=== PATIENT | female | born 1985 | race African-American/Black ===

== ENCOUNTER 2020-09-16 13:51 | Outpatient (CLI) | payer BC, SELFPAY ==
--- NOTE | ~2020-09-16 | US_ITS ---
EXAMINATION: US OB transvaginal EXAM DATE: 09/16/2020 14:27 INDICATION: , bleeding. 1st trimester. TECHNIQUE: Pelvic obstetrical transvaginal sonogram was performed by a technologist. There are [facility] grayscale and Doppler images available for interpretation. There are no earlier studies of this gestation for comparison. FINDINGS: The uterus measures 8.3 x 4.5 x 5.4 cm. There is an intrauterine gestation sac which has so mewhat flattened shape, and also small subchorionic hemorrhage measuring 3 x 6 x 11 mm in size. There is a yolk sac identified and also probable pole, however there is no cardiac activity identifi ed. Suspected crown-rump length of 5 mm corresponds to estimated gestational age 6 weeks 2 days. Typi mike cardiac activity is confirmed within pole this size, if there is viability. The ovaries a re morphologically normal. IMPRESSION: Flattened gestation sac with small subchorionic hemorrhage, small pole without card iac activity identified. Poor prognostic indicators for this gestation. Consider 1-2 week follow-up e son. Reviewed, dictated and finalized at location A. TY JUVEN[employer] OFFICER IMPRESSION: Flattened gestation sac with small subchorionic hemorrhage, small f etal pole without cardiac activity identified. Poor prognostic indicators for t his gestation. Consider 1-2 week follow-up exam.
== END 2020-09-16 13:52 ==
LOC: MICIMG 13:53
PROVIDERS: PCP Nurse Practitioner Family; Visit Provider Obstetrics & Gynecology
DX: O26.851 Spotting complicating pregnancy, first trimester (principal); Z3A.00 Weeks of gestation of pregnancy not specified
CPT/HCPCS: 76817

== ENCOUNTER 2020-09-22 14:27 | Outpatient (RCR) | payer BC, SELFPAY | END 2020-12-19 23:59 | disposition home or self-care (01) | LOC: ANHLAB 14:27 | PROVIDERS: PCP Nurse Practitioner Family; Visit Provider Obstetrics & Gynecology | DX: O26.851 Spotting complicating pregnancy, first trimester (principal); O28.3 Abnormal ultrasonic finding on antenatal screening of mother; Z3A.00 Weeks of gestation of pregnancy not specified | CPT/HCPCS: 36415; 84702; 86850; 86900; 86901 ==

== ENCOUNTER 2021-05-13 10:36 | Outpatient (CLI) | payer BC, SELFPAY ==
--- NOTE | ~2021-05-13 | US_ITS ---
EXAMINATION: US OB transvaginal EXAM DATE: 05/13/2021 11:17 INDICATION: , uncertain dates. Transvaginal. TECHNIQUE: Pelvic obstetrical transvaginal sonogram was hiatal performed by a technologist. There a re multiple grayscale and Doppler images available for interpretation. There are no earlier studies of this gestation for comparison. FINDINGS: Uterus measures 7.5 x 4.5 x 5.8 cm. There is intrauterine gestation sac. pole with heart rate confirmed at 154 beats per minute. The 1.0 cm crown-rump length corresponds to estimated gestational age by ultrasound of 7 weeks 1 day, estimated date of confinement 12/29/2021. Yolk sac is identified. There is no sonographic evidence of subchorionic hemorrhage. Right ovary measures 3. 3 x 1.5 x 1.9 cm, the left measuring 4.0 x 2.3 x 2.2 cm. They are morphologically normal with color f low confirmed. IMPRESSION: Early live intrauterine gestation, age by ultrasound 7 weeks 1 day. Reviewed, dictated and finalized at location B. IMPRESSION: Early live intrauterine gestation, age by ultrasound 7 weeks 1 day .
== END 2021-05-13 10:37 ==
PROVIDERS: Visit Provider Obstetrics & Gynecology Gynecology
DX: Z34.91 Encounter for supervision of normal pregnancy, unspecified, first trimester (principal); Z3A.01 Less than 8 weeks gestation of pregnancy
CPT/HCPCS: 76817

== ENCOUNTER 2021-05-17 10:13 | Emergency (ER) | payer BC, SELFPAY ==
[2021-05-17 10:20] VITALS: BP 125/93; PULSE 100; RESP 14; TEMP 37.2; O2SAT 99
[2021-05-17 10:44] LABS: Hematocrit 40.5 % (37.0-47.0); Hemoglobin 13.9 g/dL (12.0-15.0); Mean Corpuscular HGB Conc 34.3 g/dl (32-36); Mean Corpuscular Volume 81.7 fl (80-100); Mean Platelet Volume 8.4 fl (7.4-10.4); Platelet Count Result 199 k/mm3 (150-375); Red Blood Count 4.96 M/mm3 (4.2-5.4); Red Cell Distribution Width 11.9 % (11.5-14.5); White Blood Count 5.5 K/mm3 (4.5-10.0)
--- NOTE | 2021-05-17 10:49 | ED.GENADULT ---
HPI - General Adult General Chief complaint: Nausea/Vomiting/Diarrhea Stated complaint: dehydration Time Seen by Provider: 05/17/21 10:16 Source: patient, family and RN notes reviewed Mode of arrival: ambulatory Limitations: no limitations History of Present Illness HPI narrative: Patient is a 36-year-old female who presents to emergency department for evaluation of dehydration patient was at her sharepoint manager's office today noting that she is 8 weeks per ultrasound has had some nausea and vomiting in the had a urinalysis in the sharepoint manager's office showing 4+ ketones on urinalysis patient denies any abdominal pain or other complaints at this time or concerns patient is resting comfortably patient is G5, P2 patient denies any vaginal bleeding abdominal pain Related Data Allergies Allergy/AdvReac Type Severity Reaction Status Date / Time No Known Allergies Allergy Verified 05/17/21 10:20 Review of Systems Review of Systems: All systems reviewed & are unremarkable except as noted in HPI and below PMFSH Social History Social History (Updated 05/17/21 @ 10:52 by Jose Jaquez PA-C) Smoking status: Current every day smoker Exam Narrative: Exam Narrative: GENERAL: Well-appearing, well-nourished, and in no acute distress. HEAD: Normocephalic, atraumatic. EYES: PERRLA and EOMI. ENT: Nares clear, no rhinorrhea or epistaxis. Mucous membranes moist. CHEST: Clear to auscultation. No respiratory distress. No wheezes rales or rhonchi HEART: Regular rate and rhythm. No murmur heard. Normal peripheral pulses. ABDOMEN: Soft, nontender, nondistended EXTREMITIES: Normal range of motion. No edema. SKIN: Warm, dry, no rash. NEURO: No focal deficits. Alert and oriented x3. PSYCH: Normal mood and affect. Course Course Emergency Course: Patient evaluated the emergency department was hydrated will be discharged home with medications and outpatient follow-up with primary care and sharepoint manager provided with reasons to return Vital Signs Vital signs: Vital Signs Temperature 99.0 F 05/17/21 10:20 Pulse Rate 100 05/17/21 10:20 Respiratory Rate 14 05/17/21 10:20 Blood Pressure 125/93 H 05/17/21 10:20 Pulse Oximetry 99 05/17/21 10:20 Temperature 99.0 F 05/17/21 10:20 Pulse Rate 110 H 05/17/21 12:08 Respiratory Rate 14 05/17/21 10:20 Blood Pressure 156/91 H 05/17/21 12:08 Pulse Oximetry 99 05/17/21 10:20 Medical Decision Making MDM Narrative Medical decision making narrative: Patient hydrated the emergency department no other high risk changes or concerning findings will be discharged with outpatient follow-up with sharepoint manager Vital Signs Vital Signs: Vital Signs Temperature 99.0 F 05/17/21 10:20 Pulse Rate 100 05/17/21 10:20 Respiratory Rate 14 05/17/21 10:20 Blood Pressure 125/93 H 05/17/21 10:20 Pulse Oximetry 99 05/17/21 10:20 Temperature 99.0 F 05/17/21 10:20 Pulse Rate 110 H 05/17/21 12:08 Respiratory Rate 14 05/17/21 10:20 Blood Pressure 156/91 H 05/17/21 12:08 Pulse Oximetry 99 05/17/21 10:20 Lab Data Result diagrams: 05/17/21 10:28 05/17/21 10:28 Labs: Lab Results 05/17/21 05/17/21 05/17/21 Range/Units 10:28 10:28 10:41 WBC 5.5 (4.5-10.0) K/mm3 RBC 4.96 (4.2-5.4) M/mm3 Hgb 13.9 (12.0-15.0) g/dL Hct 40.5 (37.0-47.0) % MCV 81.7 (80-100) fl MCH 28.0 (26-34) pg MCHC 34.3 (32-36) g/dl RDW 11.9 (11.5-14.5) % Plt Count 199 (150-375) k/mm3 MPV 8.4 (7.4-10.4) fl Immature Gran % (Auto) Not Reportable Neut % (Auto) Not Reportable Lymph % (Auto) Not Reportable [place] % (Auto) Not Reportable Eos % (Auto) Not Reportable Baso % (Auto) Not Reportable Lymph # (Auto) Not Reportable [place] # (Auto) Not Reportable Eos # (Auto) Not Reportable Baso # (Auto) Not Reportable Abs Immat Gran (auto) Not Reportable
[2021-05-17 10:53] LABS: Alanine Aminotransferase 23 U/L (4-35); Albumin Level 4.5 g/dL (3.5-5.1); Alkaline Phosphatase 80 U/L (38-126); Anion Gap 12 mmol/L (8-16); Aspartate Amino Transferase 46 U/L (14-36); Bilirubin,Total 0.3 mg/dL (0.2-1.3); Blood Urea Nitrogen 5 mg/dL (7-17); Calcium 9.7 mg/dL (8.4-10.2); Carbon Dioxide 24 mmol/L (22-30); Chloride 90 mmol/L (98-107); Estimated Glomerular Filt Rate > 60; Glucose 98 mg/dL (65-105); Lipase 41 U/L (23-300); Potassium 3.3 mmol/L (3.4-5.0); Sodium 126 mmol/L (137-145)
[2021-05-17 11:00] LABS: Add Urine Microscopic? YES; Appearance Urine Cloudy (Clear); Bacteria Urine Trace /hpf; Bilirubin Urine Negative (Negative); Blood Urine Negative (Negative); Color Urine Yellow (Yellow); Glucose Urine UA Negative (Negative); Ketones Urine 1+ mg/dL (Negative); Leukocyte Esterase Ur Negative LEU/UL (Negative); Mucus Urine Rare /lpf; Nitrate Urine Negative (Negative); Protein Urine Negative (Negative); Specific Grav Ur 1.015 (1.001-1.035); Squamous Epithelial Cell Urine Many /hpf (Few); Urobilinogen Urine Negative mg/dL (<2.0); WBC Urine 0-3 /hpf
[2021-05-17] MEDS: DEXTROSE 5%/LACTATED RINGERS 1,000 ML 999 ML IV CONT (11:18)
[2021-05-17] MEDS: FAMOTIDINE 20 MG/2 ML VIAL IV PUSH (11:18)
[2021-05-17 11:21] LABS: Band Neutrophils Percent 11 % (0-6); Lymphocytes Absolute Manual 2.42 K/mm3 (1.1-4.5); Lymphocytes Percent Manual 44 % (18-44); Monocytes Absolute Manual 0.44 K/mm3 (0.1-0.90); Monocytes Percent Manual 8 % (3-9); Neutrophils Absolute Manual 2.64 K/mm3 (1.7-7.2); Neutrophils Percent Manual 37 % (46-73); Total Cells Counted 100
[2021-05-17 11:22] LABS: Atypical Lymphocytes Present; Platelet Estimate Adequate (Adequate)
[2021-05-17 12:05] VITALS: BP 136/82; PULSE 97
[2021-05-17 12:07] VITALS: BP 141/86; PULSE 108
[2021-05-17 12:08] VITALS: BP 156/91; PULSE 110
[2021-05-17] MEDS: PROMETHAZINE HCL 25 MG/ML AMPUL 12.5 MG IV PUSH (12:19)
[2021-05-17 13:14] VITALS: BP 117/84; PULSE 97; RESP 12; O2SAT 100
== END 2021-05-17 13:16 | disposition home or self-care (01) ==
PROVIDERS: Emergency Medicine Emergency Medical Services; Emergency Provider Emergency Medicine
DX: O21.0 Mild hyperemesis gravidarum (principal); Z3A.08 8 weeks gestation of pregnancy; O99.331 Smoking (tobacco) complicating pregnancy, first trimester; F17.210 Nicotine dependence, cigarettes, uncomplicated
CPT/HCPCS: 36415; 80053; 81001; 81025; 83690; 85025; 96361; 96374; 96375; 99284; J2550; J7121

== ENCOUNTER 2021-10-26 15:10 | Observation (INO) | payer BC, SELFPAY ==
[2021-10-26] VITALS (29 sets, daily range): BP systolic 101–120; BP diastolic 62–76; PULSE 87–111; RESP 16; TEMP 37; O2SAT 99–100; BMI 21.6
--- NOTE | 2021-10-26 16:00 | OBADM ---
This patient, Megan Nelson, admitted to the OB room 112 for observation. Patient/family oriented to hospital policies and general routines including ID bracelet, bed and alarms, visiting hours, pain management, procedures, bathroom and other care routines, personal items, smoking policy, room service/diet, and visiting hours. Patient/Family are encouraged to report perceived risks to care and to ask questions if they do not understand what they are told or what they should do.
--- NOTE | 2021-10-26 16:54 | PC.NURSE ---
Dr. Green returned page and informed of reactive NST, no FHR decels, 1 cxn/hr. To continue monitoring until 1900 and may discharge to home if no FHR decels. Pt to have NST and BPP in am here if she is able to go home.
--- NOTE | 2021-10-26 19:00 | PC.NURSE ---
Pt left on monitor longer due to the intermittent FHR signal I've had this evening.
--- NOTE | 2021-11-04 08:05 | PM.OBTRLD ---
OB - Triage/Final Diagnosis Visit Information Comments/Additional reasons for admission: I have assessed the risk for this patient, Megan Nelson, and determined that she would benefit from observation care. Final Diagnosis (1) NST (non-stress test) nonreactive: Code(s): O28.8 - Other abnormal findings on screening of mother Status: Acute
== END 2021-10-26 19:51 | disposition home or self-care (01) ==
PROVIDERS: Admitting Provider Obstetrics & Gynecology; PCP Nurse Practitioner Family; Visit Provider Obstetrics & Gynecology
DX: O28.8 Other abnormal findings on antenatal screening of mother (principal); Z3A.30 30 weeks gestation of pregnancy
CPT/HCPCS: G0378; G0379

== ENCOUNTER 2021-10-27 09:56 | Outpatient (RCR) | payer BC, SELFPAY ==
--- NOTE | ~2021-10-27 | US_ITS ---
EXAMINATION: US OB BPP wo non-stress DATE: 10/27/2021 11:25 INTENSIVE CARE UNIT NURSE INDICATION: Small for gestational age TECHNIQUE: Real-time transabdominal obstetric ultrasound. FINDINGS: No prior studies for comparison. There is a single living fetus in vertex presentation. The placenta is posterior without placenta pr evia. cardiac activity and movement is noted with a heart rate of 136 beats per minute. Biophysical profile: breathin of 2 movement: 2 of 2 tone: 2 of 2 Amniotic flud pocket: 2 of 2 Total score: 8 of 8 IMPRESSION: 1. Single living intrauterine in vertex presentation. 2: Total biophysical profile score of 8/8. Reviewed, dictated and finalized at location A. NSIVE CARE UNIT NURSE
[2021-10-27 11:25] VITALS: BP 107/78; PULSE 110
== END 2021-12-09 20:46 | disposition home or self-care (01) ==
LOC: ANHOBOP 09:56
PROVIDERS: PCP Nurse Practitioner Family; Visit Provider Obstetrics & Gynecology
DX: O36.5930 Maternal care for other known or suspected poor fetal growth, third trimester, not applicable or unspecified (principal); Z3A.30 30 weeks gestation of pregnancy
CPT/HCPCS: 59025; 76819

== ENCOUNTER 2021-11-01 03:38 | Observation (INO) | payer BC, SELFPAY ==
[2021-11-01 03:38] VITALS: RESP 12
[2021-11-01 03:56] VITALS: BP 118/73; PULSE 88; RESP 16; TEMP 36.8
[2021-11-01 03:57] VITALS: PULSE 90; O2SAT 100
[2021-11-01 04:02] VITALS: PULSE 78; O2SAT 100
[2021-11-01 05:02] LABS: Add Urine Microscopic? NO; Appearance Urine Clear (Clear); Bilirubin Urine Negative (Negative); Blood Urine Negative (Negative); Color Urine Straw (Yellow); Glucose Urine UA Negative (Negative); Ketones Urine Negative (Negative); Leukocyte Esterase Ur Negative LEU/UL (NEGATIVE); Nitrate Urine Negative (Negative); Protein Urine Negative (Negative); Urobilinogen Urine Negative mg/dL (<2.0)
[2021-11-01 05:12] VITALS: BMI 22.0
[2021-11-01 05:45] LABS: Specific Grav Ur 1.003 (1.001-1.035)
--- NOTE | 2021-11-04 08:04 | P.PNOB_ITS ---
OB - Triage/Final Diagnosis Visit Information Comments/Additional reasons for admission: I have assessed the risk for this patient, Megan Nelson, and determined that she would benefit from observation care. Evaluation Laboratory results: Laboratory Tests 11/01/21 04:40 Urine Color Straw Urine Appearance Clear Urine pH 7.0 Ur Specific [place] 1.003 Urine Protein Negative Urine Glucose (UA) Negative Urine Ketones Negative Ur Blood (Man) Negative Urine Nitrate Negative Urine Bilirubin Negative Urine Urobilinogen Negative Ur Leukocyte Esterase Negative Final Diagnosis (1) False labor: Code(s): O47.9 - False labor, unspecified Status: Acute
== END 2021-11-01 07:12 | disposition home or self-care (01) ==
PROVIDERS: Admitting Provider Obstetrics & Gynecology; PCP Nurse Practitioner Family; Visit Provider Obstetrics & Gynecology
DX: O47.9 False labor, unspecified (principal); Z3A.00 Weeks of gestation of pregnancy not specified
CPT/HCPCS: 81003; G0378; G0379

== ENCOUNTER 2021-11-14 17:45 | Inpatient (IN) | payer BC, SELFPAY ==
[2021-11-14] VITALS (36 sets, daily range): BP systolic 128–156; BP diastolic 77–87; PULSE 64–99; RESP 16–20; TEMP 36.5–37.1; O2SAT 100
[2021-11-14] MEDS: LACTATED RINGERS 1,000 ML 125 ML IV CONT ×2 (18:00→19:04)
[2021-11-14] MEDS: ceFAZolin 2 GM/D5W 50 ML 2 GM/50 ML BAG IVPB (18:13)
[2021-11-14 18:23] LABS: Basophils Percent Auto 0.3 % (0.2-1.2); Eosinophils Absolute Auto 0.1 K/mm3 (0-0.3); Hematocrit 33.2 % (37.0-47.0); Hemoglobin 10.9 g/dL (12.0-15.0); Immature Granulocyte Absolute 0.04 K/mm3 (0.00-0.031); Immature Granulocyte Percent A 0.6 % (0-0.5); Lymphocytes Percent Auto 45.2 % (18.3-44.2); Mean Corpuscular HGB Conc 32.8 g/dl (32-36); Mean Corpuscular Hemoglobin 28.6 pg (26-34); Mean Corpuscular Volume 87.1 fl (80-100); Monocytes Absolute Auto 0.7 K/mm3 (0.1-0.6); Monocytes Percent Auto 11.4 % (2.6-8.5); Neutrophils Absolute Auto 2.6 K/mm3 (1.3-6.7); Neutrophils Percent Auto 40.5 % (45.5-73.1); Platelet Count Result 320 k/mm3 (150-375); Red Blood Count 3.81 M/mm3 (4.2-5.4); Red Cell Distribution Width 13.2 % (11.5-14.5); White Blood Count 6.4 K/mm3 (4.5-10.0)
[2021-11-14 18:33] LABS: INR 0.9; Prothrombin Time 12.3 Seconds (11.1-14.7)
[2021-11-14 18:34] LABS: Partial Thromboplastin Time 30.9 SECONDS (22.3-36.8)
[2021-11-14 18:40] LABS: Fibrinogen 252 mg/dl (215-510)
--- NOTE | 2021-11-14 19:13 | WPDANESEPP ---
Anes - Eval Pre Procedure Procedure: Operation Date: 11/14/21 18:30 Proposed Procedures p Section - Latoya Isidro MD Date/Time: 11/14/21 19:13 Pre Op Diagnosis: Bleeding Patient Data Age: 36 Gender: F Height: Weight: 49.9 kg Last Vital Signs Pulse 91 11/14/21 19:06 BP 128/87 11/14/21 19:06 Pulse Ox 100 11/14/21 19:10 Allergies Allergy/AdvReac Type Severity Reaction Status Date / Time No Known Allergies Allergy Verified 05/17/21 10:20 Home Medications Medication Instructions Recorded Confirmed Type PNV cmb#95-ferrous fumarate-FA 1 tablet PO DAILY 10/26/21 10/27/21 History [] aspirin 81 mg PO DAILY 10/26/21 10/27/21 History progesterone micronized 100 mg VAGINAL HS 10/26/21 10/27/21 History Laboratory Tests 11/14/21 11/14/21 11/14/21 18:18 18:18 18:18 WBC 6.4 K/mm3 K/mm3 (4.5-10.0) RBC 3.81 M/mm3 L M/mm3 (4.2-5.4) Hgb 10.9 g/dL L D g/dL (12.0-15.0) Hct 33.2 % L % (37.0-47.0) MCV 87.1 fl fl (80-100) MCH 28.6 pg pg (26-34) MCHC 32.8 g/dl g/dl (32-36) RDW 13.2 % % (11.5-14.5) Plt Count 320 k/mm3 D k/mm3 (150-375) MPV 9.0 fl fl (7.4-10.4) Immature Gran % (Auto) 0.6 % H % (0-0.5) Neut % (Auto) 40.5 % L % (45.5-73.1) Lymph % (Auto) 45.2 % H % (18.3-44.2) [place] % (Auto) 11.4 % H % (2.6-8.5) Eos % (Auto) 2.0 % % (0-4.4) Baso % (Auto) 0.3 % % (0.2-1.2) Lymph # (Auto) 2.90 K/mm3 K/mm3 (0.9-3.2) [place] # (Auto) 0.7 K/mm3 H K/mm3 (0.1-0.6) Eos # (Auto) 0.1 K/mm3 K/mm3 (0-0.3) Baso # (Auto) 0.0 K/mm3 K/mm3 (0.0-0.1) Abs Immat Gran (auto) 0.04 K/mm3 H K/mm3 (0.00-0.031) Absolute Neuts (auto) 2.6 K/mm3 K/mm3 (1.3-6.7) Absolute Nucleated RBC 0.0 K/mm3 K/mm3 (0.0-0.012) Nucleated RBC % 0.0 % % (0.0-0.2) PT INR APTT Fibrinogen RPR Pending Blood Type O Positive Antibody Screen Negative 11/14/21 18:18 WBC RBC Hgb Hct MCV MCH MCHC RDW Plt Count MPV Immature Gran % (Auto) Neut % (Auto) Lymph % (Auto) [place] % (Auto) Eos % (Auto) Baso % (Auto) Lymph # (Auto) [place] # (Auto) Eos # (Auto) Baso # (Auto) Abs Immat Gran (auto) Absolute Neuts (auto) Absolute Nucleated RBC Nucleated RBC % PT 12.3 Seconds Seconds (11.1-14.7) INR 0.9 APTT 30.9 SECONDS SECONDS (22.3-36.8) Fibrinogen 252 mg/dl mg/dl (215-510) RPR Blood Type Antibody Screen Patient hx anesthesia problems: none Family hx anesthesia problems: none Results Review: All pre-operative results and documents have been reviewed as part of the pre-operative evaluation. [facility] Past Medical History Medical History (Updated 11/04/21 @ 08:06 by Erasmo Green MD) False labor NST (non-stress test) nonreactive Social History Social History (Updated 05/17/21 @ 10:52 by Jose Jaquez PA-C) Smoking status: Current every day smoker Exam Day of Procedure 11/14/21 19:13 Patient weight: normal Heart: regular rate and rhythm Lungs: clear to auscultation Airway: Mallampati scale class II Neurological: alert and oriented
[2021-11-14 19:32] LABS: Amphetamine Screen Urine Negative (Negative); Barbiturate Screen Urine Negative (Negative); Benzodiazepines Screen Urine Negative (Negative); Cannabinoid Screen Urine Negative (Negative); Cocaine Screen Urine Negative (Negative); Methadone Screen Urine Negative (Negative); Opiate Screen Urine Negative (Negative); Phencyclidine Screen Urine Negative (Negative)
[2021-11-14] MEDS: MORPHINE SULFATE INJ (*CRX) 10 MG/ML AMP 3 MG IV PUSH ×2 (19:40→20:09)
--- NOTE | 2021-11-14 21:11 | OBPPTRN ---
Patient transferred to post room #290 via bed. Support person present. Oriented to unit, room, information board, rooming in, admission packet and security measures. Patient verbalizes understanding.
[2021-11-14] MEDS: OXYTOCIN 30 UNITS/NS 500 ML 30 UNITS/500 ML BAG 125 UNITS IV CONT (21:39)
[2021-11-14] MEDS: FENTANYL 600MCG/NS30MLPCA(*CRX 600 MCG/30 ML PCA.VIAL IV CONT (22:44)
[2021-11-15] VITALS (10 sets, daily range): BP systolic 115–141; BP diastolic 66–91; PULSE 75–89; RESP 16–18; TEMP 36.8–37.2; O2SAT 100
[2021-11-15] MEDS: DEXTROSE 5%/0.45% SOD CHL 1,000 ML 125 ML IV CONT (01:50)
[2021-11-15 05:50] LABS: Basophils Percent Auto 0.1 % (0.2-1.2); Hematocrit 25.9 % (37.0-47.0); Hemoglobin 8.5 g/dL (12.0-15.0); Immature Granulocyte Absolute 0.15 K/mm3 (0.00-0.031); Lymphocytes Absolute Auto 2.29 K/mm3 (0.9-3.2); Lymphocytes Percent Auto 14.6 % (18.3-44.2); Mean Corpuscular HGB Conc 32.8 g/dl (32-36); Mean Corpuscular Hemoglobin 28.9 pg (26-34); Mean Corpuscular Volume 88.1 fl (80-100); Mean Platelet Volume 9.2 fl (7.4-10.4); Monocytes Percent Auto 6.2 % (2.6-8.5); Neutrophils Absolute Auto 12.2 K/mm3 (1.3-6.7); Neutrophils Percent Auto 78.1 % (45.5-73.1); Platelet Count Result 286 k/mm3 (150-375); Red Blood Count 2.94 M/mm3 (4.2-5.4); White Blood Count 15.7 K/mm3 (4.5-10.0)
[2021-11-15 05:51] LABS: Glucose Point of Care 127 mg/dl (65-105)
--- NOTE | 2021-11-15 07:28 | PM.OBPNVD ---
OB - PN: Subj Subjective Date/time seen: 11/15/21 07:28 Patient comments: no complaints and pain well controlled baby status: doing well (transferred to [facility]) OB - PN: Obj Data Labs CBC & Chem 7: 11/15/21 04:29 Labs: Laboratory Results - last 24 hr 11/14/21 11/14/21 11/14/21 18:18 18:18 18:18 WBC 6.4 RBC 3.81 L Hgb 10.9 L D Hct 33.2 L MCV 87.1 MCH 28.6 MCHC 32.8 RDW 13.2 Plt Count 320 D MPV 9.0 Immature Gran % (Auto) 0.6 H Neut % (Auto) 40.5 L Lymph % (Auto) 45.2 H [place] % (Auto) 11.4 H Eos % (Auto) 2.0 Baso % (Auto) 0.3 Lymph # (Auto) 2.90 [place] # (Auto) 0.7 H Eos # (Auto) 0.1 Baso # (Auto) 0.0 Abs Immat Gran (auto) 0.04 H Absolute Neuts (auto) 2.6 Absolute Nucleated RBC 0.0 Nucleated RBC % 0.0 PT INR APTT Fibrinogen POC Capillary Glucose Urine Opiates Screen Negative Urine Methadone Screen Negative Ur Barbiturates Screen Negative Ur Phencyclidine Scrn Negative Ur Amphetamine Screen Negative U Benzodiazepines Scrn Negative Urine Cocaine Screen Negative U Cannabinoids Screen Negative Blood Type O Positive Antibody Screen Negative 11/14/21 11/15/21 11/15/21 18:18 04:29 05:46 WBC 15.7 H RBC 2.94 L Hgb 8.5 L Hct 25.9 L MCV 88.1 MCH 28.9 MCHC 32.8 RDW 13.0 Plt Count 286 MPV 9.2 Immature Gran % (Auto) 1.0 H Neut % (Auto) 78.1 H Lymph % (Auto) 14.6 L [place] % (Auto) 6.2 Eos % (Auto) 0.0 Baso % (Auto) 0.1 L Lymph # (Auto) 2.29 [place] # (Auto) 1.0 H Eos # (Auto) 0.0 Baso # (Auto) 0.0 Abs Immat Gran (auto) 0.15 H Absolute Neuts (auto) 12.2 H Absolute Nucleated RBC 0.0 Nucleated RBC % 0.0 PT 12.3 INR 0.9 APTT 30.9 Fibrinogen 252 POC Capillary Glucose 127 H Urine Opiates Screen Urine Methadone Screen Ur Barbiturates Screen Ur Phencyclidine Scrn Ur Amphetamine Screen U Benzodiazepines Scrn Urine Cocaine Screen U Cannabinoids Screen Blood Type Antibody Screen OB - PN A/P Plan day: 1 Plan: routine care Comments: no meds prior to for DM-will follow accuchecks Time Spent With Patient Time: Total time spent is greater than 50% in coordination of care (as documented) at patient's floor/unit and/or counseling patient: Exam Narrative: inc ooozing-redressed : Bimanual exam- vagina & uterus: other (Uterus firm, nt @U)
--- NOTE | 2021-11-15 07:39 | WPDANLDPN2 ---
Anes-Prog Note L&D Date/Time: 11/15/21 07:39 Comfortable throughout: section Neuro status: Neuro function grossly intact. Cardiovascular status: normal Respiratory status: normal Airway patency: baseline Mental status: baseline Post-Op hydration status: normal Vital Signs: Last Vital Signs Temp 98.4 F 11/15/21 04:15 Pulse 89 11/15/21 04:15 Resp 18 11/15/21 05:45 BP 123/83 11/15/21 04:15 Pulse Ox 100 11/15/21 05:45 Pain score (VAS): 0 I/O: Intake & Output 11/14/21 11/14/21 11/15/21 15:59 23:59 07:59 Intake Total 2050 505.15 Output Total 1400 500 Balance 650 5.15 Post-procedural complaints: none Patient feedback: Patient satisfied with anesthetic care.
--- NOTE | 2021-11-15 07:40 | WPDANESPN ---
Anes - Prog Note Post-Op Date/Time: 11/15/21 07:40 Cardiovascular status: normal Respiratory status: normal Airway patency: baseline Mental status: baseline Post-Op hydration status: normal Vital Signs: Last Vital Signs Temp 98.4 F 11/15/21 04:15 Pulse 89 11/15/21 04:15 Resp 18 11/15/21 05:45 BP 123/83 11/15/21 04:15 Pulse Ox 100 11/15/21 05:45 Pain Score (VAS): 0 I/O: Intake & Output 11/14/21 11/14/21 11/15/21 15:59 23:59 07:59 Intake Total 2050 505.15 Output Total 1400 500 Balance 650 5.15 Laboratory Tests 11/15/21 04:29 11/14/21 11/14/21 11/14/21 18:18 18:18 18:18 WBC 6.4 RBC 3.81 L Hgb 10.9 L D Hct 33.2 L MCV 87.1 MCH 28.6 MCHC 32.8 RDW 13.2 Plt Count 320 D MPV 9.0 Immature Gran % (Auto) 0.6 H Neut % (Auto) 40.5 L Lymph % (Auto) 45.2 H [place] % (Auto) 11.4 H Eos % (Auto) 2.0 Baso % (Auto) 0.3 Lymph # (Auto) 2.90 [place] # (Auto) 0.7 H Eos # (Auto) 0.1 Baso # (Auto) 0.0 Abs Immat Gran (auto) 0.04 H Absolute Neuts (auto) 2.6 Absolute Nucleated RBC 0.0 Nucleated RBC % 0.0 PT INR APTT Fibrinogen POC Capillary Glucose Urine Opiates Screen Urine Methadone Screen Ur Barbiturates Screen Ur Phencyclidine Scrn Ur Amphetamine Screen U Benzodiazepines Scrn Urine Cocaine Screen U Cannabinoids Screen RPR Pending Blood Type O Positive Antibody Screen Negative 11/14/21 11/14/21 11/15/21 18:18 18:18 04:29 WBC 15.7 H RBC 2.94 L Hgb 8.5 L Hct 25.9 L MCV 88.1 MCH 28.9 MCHC 32.8 RDW 13.0 Plt Count 286 MPV 9.2 Immature Gran % (Auto) 1.0 H Neut % (Auto) 78.1 H Lymph % (Auto) 14.6 L [place] % (Auto) 6.2 Eos % (Auto) 0.0 Baso % (Auto) 0.1 L Lymph # (Auto) 2.29 [place] # (Auto) 1.0 H Eos # (Auto) 0.0 Baso # (Auto) 0.0 Abs Immat Gran (auto) 0.15 H Absolute Neuts (auto) 12.2 H Absolute Nucleated RBC 0.0 Nucleated RBC % 0.0 PT 12.3 INR 0.9 APTT 30.9 Fibrinogen 252 POC Capillary Glucose Urine Opiates Screen Negative Urine Methadone Screen Negative Ur Barbiturates Screen Negative Ur Phencyclidine Scrn Negative Ur Amphetamine Screen Negative U Benzodiazepines Scrn Negative Urine Cocaine Screen Negative U Cannabinoids Screen Negative RPR Blood Type Antibody Screen 11/15/21 05:46 WBC RBC Hgb Hct MCV MCH MCHC RDW Plt Count MPV Immature Gran % (Auto) Neut % (Auto) Lymph % (Auto) [place] % (Auto) Eos % (Auto) Baso % (Auto) Lymph # (Auto) [place] # (Auto) Eos # (Auto) Baso # (Auto) Abs Immat Gran (auto) Absolute Neuts (auto) Absolute Nucleated RBC Nucleated RBC % PT INR APTT Fibrinogen POC Capillary Glucose 127 H Urine Opiates Screen Urine Methadone Screen Ur Barbiturates Screen Ur Phencyclidine Scrn Ur Amphetamine Screen U Benzodiazepines Scrn Urine Cocaine Screen U Cannabinoids Screen RPR Blood Type Antibody Screen Post-procedural complaints: none Patient Feedback: Patient satisfied with anesthetic care.
[2021-11-15] MEDS: POLYSACCHARIDE IRON COMPLEX 150 MG CAPSULE PO ×2 (09:38→15:36)
[2021-11-15] MEDS: DOCUSATE SODIUM 100 MG CAPSULE PO ×2 (09:38→15:35)
[2021-11-15] MEDS: HYDROcodone/acetaminophen (*CRX) 5-325 MG TABLET 1 TAB PO ×3 (09:38→22:29)
[2021-11-15] MEDS: KETOROLAC 30 MG/ML VIAL (*BKC) IV PUSH (09:39)
[2021-11-15 10:55] LABS: Glucose Point of Care 126 mg/dl (65-105)
--- NOTE | 2021-11-15 11:24 | PM.OBDSVD ---
DS: Admitting Diagnosis Discharge Date 11/16/21 Admitting Diagnosis IUP 34 weeeks with placental abruption requests steriliztion DS: Discharge Diagnosis Discharge Diagnosis (1) delivery delivered: Code(s): O82 - Encounter for delivery without indication Status: Acute (2) Placental abruption: Code(s): O45.90 - Premature separation of placenta, unspecified, unspecified trimester Status: Acute (3) Encounter for sterilization: Code(s): Z30.2 - Encounter for sterilization Status: Acute OB - DS: Summary OB Procedures : NST and Ultrasound OB Procedures Intrapartum: low cervical, transverse and Tubal ligation (PER PATHOLOGY LEFT TUBE NOT INCLUDED IN SPECIMEN-patient informed 11/17/21) OB Procedures: : None Peripartum Data Infant Delivery Method: Section Procedures: Procedures Operation Date: 11/14/21 18:30 Actual Procedure Side Surgeon p Section Not Applicable Latoya Isidro MD complications: none Status at Discharge Functional status at discharge: independent ambulation Overall status at discharge: patient is progressing back to baseline Time Spent with Patient Time attestation: Total time spent providing and/or coordinating discharge services: DS: Data Data Completed and Pending Pending studies at discharge: Pending at discharge 11/14/21 19:33 Surgical [PTH] Routine Labs on day of discharge: Labs from last 24 hours 11/15/21 11/15/21 11/15/21 10:52 05:46 04:29 WBC 15.7 H RBC 2.94 L Hgb 8.5 L Hct 25.9 L MCV 88.1 MCH 28.9 MCHC 32.8 RDW 13.0 Plt Count 286 MPV 9.2 Immature Gran % (Auto) 1.0 H Neut % (Auto) 78.1 H Lymph % (Auto) 14.6 L [place] % (Auto) 6.2 Eos % (Auto) 0.0 Baso % (Auto) 0.1 L Lymph # (Auto) 2.29 [place] # (Auto) 1.0 H Eos # (Auto) 0.0 Baso # (Auto) 0.0 Abs Immat Gran (auto) 0.15 H Absolute Neuts (auto) 12.2 H Absolute Nucleated RBC 0.0 Nucleated RBC % 0.0 PT INR APTT Fibrinogen POC Capillary Glucose 126 H 127 H Urine Opiates Screen Urine Methadone Screen Ur Barbiturates Screen Ur Phencyclidine Scrn Ur Amphetamine Screen U Benzodiazepines Scrn Urine Cocaine Screen U Cannabinoids Screen RPR Blood Type Antibody Screen 11/14/21 11/14/21 11/14/21 18:18 18:18 18:18 WBC RBC Hgb Hct MCV MCH MCHC RDW Plt Count MPV Immature Gran % (Auto) Neut % (Auto) Lymph % (Auto) [place] % (Auto) Eos % (Auto) Baso % (Auto) Lymph # (Auto) [place] # (Auto) Eos # (Auto) Baso # (Auto) Abs Immat Gran (auto) Absolute Neuts (auto) Absolute Nucleated RBC Nucleated RBC % PT 12.3 INR 0.9 APTT 30.9 Fibrinogen 252 POC Capillary Glucose Urine Opiates Screen Negative Urine Methadone Screen Negative Ur Barbiturates Screen Negative Ur Phencyclidine Scrn Negative Ur Amphetamine Screen Negative U Benzodiazepines Scrn Negative Urine Cocaine Screen Negative U Cannabinoids Screen Negative RPR Blood Type O Positive Antibody Screen Negative 11/14/21 11/14/21 18:18 18:18 WBC 6.4 RBC 3.81 L Hgb 10.9 L D Hct 33.2 L MCV 87.1 MCH 28.6 MCHC 32.8 RDW 13.2 Plt Count 320 D MPV 9.0 Immature Gran % (Auto) 0.6 H Neut % (Auto) 40.5 L Lymph % (Auto) 45.2 H [place] % (Auto) 11.4 H Eos % (Auto) 2.0 Baso % (Auto) 0.3 Lymph # (Auto) 2.90 [place] # (Auto) 0.7 H Eos # (Auto) 0.1 Baso # (Auto) 0.0 Abs Immat Gran (auto) 0.04 H Absolute Neuts (auto) 2.6 Absolute Nucleated RBC 0.0 Nucleated RBC % 0.0 PT INR APTT Fibrinogen POC Capillary Glucose Urine Opiates Screen Urine Methadone Screen Ur Barbiturates Screen Ur Phencyclidine Scrn Ur Amphetamine Screen U Benzodiazepines Scrn Urine Co
--- NOTE | 2021-11-15 11:28 | W.PM.PROC2 ---
Procedure Note - Detailed Date of Procedure 11/15/21 Pre-op Diagnosis Bleeding 34 weeks with placental abruption previous csection x 3 requests sterilization NIDDM IUGR Post-op Diagnosis same Procedure Performed emergent LTCS and BTL Surgeon Latoya Isidro MD Anesthesia general Findings 335 cc blood clot as soon as entered uterus; total EBL 925clear fluid; vertex male ; extensive adhesions left ovary and tube; normal appearing right tube and ovary; uterus very thin with fetus visible through lower uterine segment Description of Procedure The patient was taken to OR and place on monitor as room and anesthesia prepped. Patient then quickly prepped and draped as anesthesia place patient under general. Once ETT placed, Pfannenstiel incision made and carried to fascia which was incised and extended bluntly. Peritoneum entered bluntly and extended. Bladder high on uterus. Bladder flap created quickly. Lower uterine incision incised and noted to be see through. Blood expressed upon entering cavity. Infant quickly delivered and membranes ruptured. Cord clamped and cut and handed off to peds. Placenta delivered and clots delivered. Uterus cleared of all debris. Uterus exteriorized. Uterine lowere segment very thin and grasped with allis clamps. Closed with 0-monocryl in 2 layers. Good hemostasis noted. Cul de sac and gutters irrigated and uterus returned to abdomen. Inc noted to bne hemostatic. Fascia closed with 0- vicryl. SQ irrigated and hemostais obtained with bovie. Skin closed with absorbable sutures. Sponge, needle, and instrument counts correct. Ancef given prior to incision. Estimated Blood Loss -925.0 Urine Output -200.0
--- NOTE | 2021-11-15 14:06 | PC.NURSE ---
Pt's primary nurse today, asked me, with pt's permission, to visit with pt and tell her about [facility]. Pt has had 3 / losses, and now has 3 living children, the youngest one born at 34 weeks, last evening. Baby is in the NICU and doing well. Mother also doing well. I briefly explained the [facility] program, and how she can be involved, primarily by participating in the memorial events. Pt receptive, and signed consent. Her information will be added to the Share mailing list. Pt had no other questions or concerns at this time.
[2021-11-15 14:33] LABS: Rapid Plasma Reagin Non-Reactive (NonReactive)
--- NOTE | 2021-11-15 14:59 | PC.NURSE ---
0830 - Breast pump provided due to baby transferred to [facility]. Mom is on a phone call with [facility] nurse. After the phone call was completed, then instructions given on breast pump care and usage, pumping schedule every 3 hours, nipple care, and collection and storage of breast milk. Pumping log provided and reviewed. Assessed patient for correct flange size, placement and draw. Patient verbalizes and demonstrates understanding of instructions.
[2021-11-15 15:06] LABS: Glucose Point of Care 107 mg/dl (65-105)
[2021-11-15] MEDS: MULTIVIT/MIN/PREN/FOL AC/IRON TABLET 1 TAB PO (15:35)
[2021-11-15] MEDS: IBUPROFEN 600 MG TABLET PO ×2 (15:36→22:28)
[2021-11-15 19:59] LABS: Glucose Point of Care 113 mg/dl (65-105)
[2021-11-16 07:25] VITALS: BP 120/79; PULSE 90; RESP 18; TEMP 37; O2SAT 100
--- NOTE | 2021-11-16 07:25 | PM.OBPNVD ---
OB - PN: Subj Subjective Date/time seen: 11/16/21 07:25 Patient comments: no complaints and pain well controlled baby status: doing well OB - PN: Obj Data Labs CBC & Chem 7: 11/15/21 04:29 Labs: Laboratory Results - last 24 hr 11/14/21 11/15/21 11/15/21 18:18 10:52 15:01 POC Capillary Glucose 126 H 107 H RPR Non-reactive 11/15/21 19:54 POC Capillary Glucose 113 H RPR OB - PN A/P Plan day: 2 Plan: routine care Comments: pass to [facility] Time Spent With Patient Time: Total time spent is greater than 50% in coordination of care (as documented) at patient's floor/unit and/or counseling patient: Exam Narrative: inc c/d/i : Bimanual exam- vagina & uterus: other (Uterus firm, nt @U)
[2021-11-16] MEDS: MULTIVIT/MIN/PREN/FOL AC/IRON TABLET 1 TAB PO (07:55)
[2021-11-16] MEDS: POLYSACCHARIDE IRON COMPLEX 150 MG CAPSULE PO ×2 (07:55→16:55)
[2021-11-16] MEDS: DOCUSATE SODIUM 100 MG CAPSULE PO ×2 (07:55→16:55)
[2021-11-16] MEDS: HYDROcodone/acetaminophen (*CRX) 5-325 MG TABLET 1 TAB PO ×3 (07:55→22:18)
[2021-11-16] MEDS: TETANUS,DIPHTHERIA,AC PERTUSSIS ADULT (0.5 ML) BOOSTRIX IM (07:56)
[2021-11-16] MEDS: IBUPROFEN 600 MG TABLET PO ×3 (07:59→22:17)
[2021-11-16 08:07] LABS: Glucose Point of Care 93 mg/dl (65-105)
[2021-11-16 14:05] LABS: Glucose Point of Care 82 mg/dl (65-105)
[2021-11-16] MEDS: SIMETHICONE 80 MG TAB.CHEW PO ×2 (14:39→22:17)
[2021-11-16 19:04] VITALS: BP 141/78; PULSE 82; RESP 16; TEMP 37.4
[2021-11-16 19:24] LABS: Glucose Point of Care 105 mg/dl (65-105)
[2021-11-17 07:00] VITALS: PULSE 84; RESP 18; O2SAT 100
--- NOTE | 2021-11-17 07:41 | PM.OBPNVD ---
OB - PN: Subj Subjective Date/time seen: 11/17/21 07:41 Patient comments: no complaints and pain well controlled Narrative: Discussed with patient pathology without tube on left side where adhesions were located. Reviewed need for bc and tubal not effective as one side open. Patient deciding between pills and DepoProvera. She will call the office once decides or discuss at 1 week follow up OB - PN: Obj Data Labs CBC & Chem 7: 11/15/21 04:29 Labs: Laboratory Results - last 24 hr 11/16/21 11/16/21 11/16/21 08:04 14:00 19:20 POC Capillary Glucose 93 82 105 OB - PN A/P Plan day: 1 Plan: routine care and discharge home Time Spent With Patient Time: Total time spent is greater than 50% in coordination of care (as documented) at patient's floor/unit and/or counseling patient: Exam Narrative: inc c/d/i : Bimanual exam- vagina & uterus: other (Uterus firm, nt @U)
[2021-11-17] MEDS: IBUPROFEN 600 MG TABLET PO (07:49)
[2021-11-17] MEDS: DOCUSATE SODIUM 100 MG CAPSULE PO (07:49)
[2021-11-17] MEDS: POLYSACCHARIDE IRON COMPLEX 150 MG CAPSULE PO (07:49)
[2021-11-17] MEDS: HYDROcodone/acetaminophen (*CRX) 5-325 MG TABLET 1 TAB PO (07:49)
[2021-11-17] MEDS: SIMETHICONE 80 MG TAB.CHEW PO (07:50)
[2021-11-17 08:10] VITALS: BP 144/86; PULSE 84; RESP 18; TEMP 37.2; O2SAT 100
[2021-11-17 09:10] LABS: Glucose Point of Care 127 mg/dl (65-105)
--- NOTE | 2021-11-21 08:00 | PM.IMHP ---
H&P: HPI History of Present Illness Date/Time: 11/14/211999 Patient is a 36 yo A1 at 33 1/2 weeks here with heavy vaginal bleeding. On my arrival, patient chucks pad soaked and BRB coming in stream from vagina.VSS and +FHTs. Recommended to proceed immediately with csection under general anethesia. Patient agreed and also wanted to verify we could do tubal ligation. Patient taken to OR for emergent csection. See op note. Chief Complaint: bleeding Review of Systems Review of Systems: ROS unobtainable: Yes unobtainable due to medical condition [facility] Past Medical History Medical History (Updated 11/21/21 @ 10:08 by Latoya Isidro MD) Type 2 diabetes mellitus diagnosis in early managed with diet control Surgical History Surgical History (Updated 11/21/21 @ 10:05 by Latoya Isidro MD) History of G2-34 week abruption- G3-26 week preeclampsia G4-36 week labor Social History Social History (Updated 05/17/21 @ 10:52 by Jose Jaquez PA-C) Smoking status: Current every day smoker Substance use: former Spiritual care concerns: No Meds Home Medications and Allergies Home Medications Medication Instructions Recorded Confirmed Type PNV cmb#95-ferrous fumarate-FA 1 tablet PO DAILY 10/26/21 10/27/21 History [] hydrocodone-acetaminophen 1 tablet PO Q3H PRN #30 tablet 11/16/21 Rx Allergies Allergy/AdvReac Type Severity Reaction Status Date / Time No Known Allergies Allergy Verified 05/17/21 10:20 Exam Const: General: healthy appearing and comfortable (very anxious) GI: Inspection: scar GI Palp: Yes Soft to palpation and No Tenderness to palpation present (GI) : External Female Exam: other (blood streaming out vagina) Assessment and Plan Assessment and plan (1) 33 weeks gestation of : Code(s): Z3A.33 - 33 weeks gestation of Status: Acute (2) Placental abruption: Code(s): O45.90 - Premature separation of placenta, unspecified, unspecified trimester Status: Acute Assessment and Plan: Proceeded immediately with emergent csection (3) Encounter for sterilization: Code(s): Z30.2 - Encounter for sterilization Status: Acute Assessment and Plan: BTL attempted. Final pathology revealed only Right tubal. Patient informed prior to dc home (4) IUGR (intrauterine growth restriction): Status: Acute
== END 2021-11-17 10:00 | disposition home or self-care (01) | DRG 783 ==
LOC: ANHOBPP 18:17 → ANHOB2 21:17
PROVIDERS: Admitting Provider Obstetrics & Gynecology Gynecology; PCP Nurse Practitioner Family; Visit Provider Obstetrics & Gynecology Gynecology
PROC: 10D00Z1 Extraction of Products of Conception, Low, Open Approach (ICD-10-PCS; CPT 59514; principal; 2021-11-14 18:30)
DX: O24.429 Gestational diabetes mellitus in childbirth, unspecified control (principal); O45.93 Premature separation of placenta, unspecified, third trimester; O36.5930 Maternal care for other known or suspected poor fetal growth, third trimester, not applicable or unspecified; Z3A.33 33 weeks gestation of pregnancy; Z37.0 Single live birth; O34.219 Maternal care for unspecified type scar from previous cesarean delivery; Z30.2 Encounter for sterilization
CPT/HCPCS: 36415; 80307; 82948; 85025; 85384; 85610; 85730; 86592; 86850; 86900; 86901; 88302; 90715; A9270; J0131; J0330; J0690; J1100; J1885; J2250; J2270; J2405; J2590; J2704; J3010; J7120

== ENCOUNTER 2023-11-13 10:29 | Outpatient (CLI) | payer MEDICAID, SELFPAY ==
--- NOTE | ~2023-11-13 | US_ITS ---
EXAMINATION: US OB transvaginal DATE: 11/13/2023 10:55 INDICATION: High-risk . TECHNIQUE: Real-time transvaginal pelvic ultrasound was performed. COMPARISON: None. FINDINGS: The uterus measures 6.0 x 4.7 x 5.9 cm. There is an intrauterine gestational sac. A yolk sac is iden tified. The crown rump length measures 2 mm, which correlates with an estimated gestational ag e of 5 weeks and 6 day(s) (+/-) 4 day(s). heart motion is not identified, which is normal at th is size. The right ovary measures 3.0 x 2.0 x 1.5 cm. The left ovary measures 3.0 x 2.3 x 2.6 cm. The re is no free fluid in the pelvis. IMPRESSION: 1. Single intrauterine gestation with estimated date of delivery of 07/09/2024. Reviewed, dictated and finalized at location A. ER REPAIR TECHNICIAN
== END 2023-11-13 10:30 ==
PROVIDERS: PCP Obstetrics & Gynecology Gynecology; Visit Provider Obstetrics & Gynecology Gynecology
DX: O09.90 Supervision of high risk pregnancy, unspecified, unspecified trimester (principal); Z3A.00 Weeks of gestation of pregnancy not specified
CPT/HCPCS: 76817

== ENCOUNTER 2023-11-21 11:04 | Outpatient (CLI) | payer MEDICAID, SELFPAY ==
--- NOTE | ~2023-11-21 | US_ITS ---
EXAMINATION: US OB transvaginal DATE: 11/21/2023 11:30 INDICATION: Uncertain dates. Viability. TECHNIQUE: Real-time transvaginal pelvic ultrasound was performed. COMPARISON: Ultrasound 11/13/2023 FINDINGS: The uterus measures 8.3 x 5.7 x 6.6 cm. There is an intrauterine gestational sac. A yolk sac is ident ified. The crown rump length measures 6 mm, which correlates with an estimated gestational age of 6 weeks and 3 day(s) (+/-) 4 day(s). heart motion is identified measuring 124 beats per min [place] (bpm) by M-mode Doppler. The right ovary measures 2.8 x 1.9 x 1.1 cm. The left ovary measures 3.2 x 2.0 x 2.7 cm. There is no free fluid in the pelvis. IMPRESSION: 1. Single living intrauterine gestation with estimated date of delivery of 07/13/2024. Reviewed, dictated and finalized at location E. FUSION IMPRESSION: 1. Single living intrauterine gestation with estimated date of delivery of 07/13.
== END 2023-11-21 11:05 ==
PROVIDERS: PCP Obstetrics & Gynecology Gynecology; Visit Provider Obstetrics & Gynecology Gynecology
DX: Z36.87 Encounter for antenatal screening for uncertain dates (principal)
CPT/HCPCS: 76817

== ENCOUNTER 2024-05-15 11:07 | Observation (INO) | payer OTHER, SELFPAY ==
[2024-05-15 14:50] VITALS: BMI 21.4
--- NOTE | 2024-05-15 14:53 | OBADM ---
This patient, Megan Nelson, admitted to the OB room 112 for observation for contractions and FHR deceleration. Patient/family oriented to hospital policies and general routines including ID bracelet, bed and alarms, visiting hours, pain management, procedures, bathroom and other care routines, personal items, smoking policy, room service/diet, and visiting hours. Patient/Family are encouraged to report perceived risks to care and to ask questions if they do not understand what they are told or what they should do.
[2024-05-15 15:09] VITALS: BP 115/65; PULSE 95
--- NOTE | 2024-05-19 10:23 | PM.OBTRLD ---
OB - Triage/Final Diagnosis Visit Information Reason for evaluation: other (IUGR with variable deceleration) Comments/Additional reasons for admission: The patient was admitted for extended monitoring after variable deceleration noted is on her NST at the [facility] office. I have assessed the risk for this patient, Megan Nelson, and determined that she would benefit from observation care.
== END 2024-05-15 17:02 | disposition home or self-care (01) ==
PROVIDERS: Admitting Provider Obstetrics & Gynecology Gynecology; Visit Provider Obstetrics & Gynecology Gynecology
DX: O36.5990 Maternal care for other known or suspected poor fetal growth, unspecified trimester, not applicable or unspecified (principal); O36.8390 Maternal care for abnormalities of the fetal heart rate or rhythm, unspecified trimester, not applicable or unspecified; Z3A.00 Weeks of gestation of pregnancy not specified
CPT/HCPCS: 96368; G0378; G0379

== ENCOUNTER 2024-06-07 17:30 | Outpatient (RCR) | payer OTHER, SELFPAY ==
[2024-06-06] MEDS: BETAMETHASONE SOD PHOS/ACETATE 30 MG/5 ML VIAL 12 MG IM (17:14)
[2024-06-07] MEDS: BETAMETHASONE SOD PHOS/ACETATE 30 MG/5 ML VIAL 12 MG IM (17:39)
== END 2024-09-04 23:59 | disposition home or self-care (01) ==
LOC: ANHOBOP 17:30
PROVIDERS: PCP Nurse Practitioner Family; Visit Provider Obstetrics & Gynecology Gynecology
DX: O36.8990 Maternal care for other specified fetal problems, unspecified trimester, not applicable or unspecified (principal); Z3A.00 Weeks of gestation of pregnancy not specified
CPT/HCPCS: 96372; J0702

== ENCOUNTER 2024-06-13 06:25 | Inpatient (IN) | payer OTHER, SELFPAY ==
[2024-06-13] VITALS (36 sets, daily range): BP systolic 132–166; BP diastolic 81–97; PULSE 62–114; RESP 12–18; TEMP 36.4–36.9; O2SAT 98–100; BMI 21.8
[2024-06-13] MEDS: ACETAMINOPHEN 500 MG TABLET 1000 MG PO (06:52)
--- NOTE | 2024-06-13 07:08 | LDADM ---
This patient, Megan Nelson, was admitted to Labor/Delivery/Recovery 120 on 06/13/24 at 06:25. Plans for labor, pain management and were discussed with patient. Patient/family oriented to hospital policies and general routines including ID bracelet, bed and alarms, visiting hours, pain management, procedures, bathroom and other care routines, personal items, smoking policy, room service/diet and guest tray routines, security routines, and visiting hours. Patient/Family are encouraged to report perceived risks to care and to ask questions if they do not understand what they are told or what they should do. See OBIX for further documentation.
[2024-06-13 07:42] LABS: Basophils Percent Auto 0.4 % (0.2-1.2); Eosinophils Absolute Auto 0.2 K/mm3 (0-0.3); Eosinophils Percent Auto 1.7 % (0-4.4); Hematocrit 36.1 % (37.0-47.0); Hemoglobin 11.5 g/dL (12.0-15.0); Immature Granulocyte Absolute 0.11 K/mm3 (0.00-0.031); Immature Granulocyte Percent A 1.2 % (0-0.5); Lymphocytes Absolute Auto 3.61 K/mm3 (0.9-3.2); Lymphocytes Percent Auto 40.1 % (18.3-44.2); Mean Corpuscular HGB Conc 31.9 g/dl (32-36); Mean Corpuscular Hemoglobin 27.8 pg (26-34); Mean Corpuscular Volume 87.2 fl (80-100); Mean Platelet Volume 8.3 fl (7.4-10.4); Monocytes Absolute Auto 0.8 K/mm3 (0.1-0.6); Monocytes Percent Auto 9.2 % (2.6-8.5); Neutrophils Absolute Auto 4.3 K/mm3 (1.3-6.7); Neutrophils Percent Auto 47.4 % (45.5-73.1); Platelet Count Result 391 k/mm3 (150-375); Red Blood Count 4.14 M/mm3 (4.2-5.4); Red Cell Distribution Width 13.2 % (11.5-14.5)
--- NOTE | 2024-06-13 07:44 | WPDANESEPPF ---
Anes - Initial Pre Proc Eval Procedure: Operation Date: 06/13/24 12:00 Proposed Procedures p Section with Tubal Ligation - Latoya Isidro MD Date/Time: 06/13/24 07:44 Surgeon: Latoya Isidro MD Pre Op Diagnosis: C/S Patient Data Age: 39 Gender: F Height: 1.5 m Weight: 49 kg Last Vital Signs Pulse 83 06/13/24 07:11 BP 132/82 06/13/24 07:11 O2 Del Method Room Air 06/13/24 07:02 Allergies Allergy/AdvReac Type Severity Reaction Status Date / Time No Known Allergies Allergy Verified 06/13/24 07:45 Home Medications Medication Instructions Recorded Confirmed Type vit no.95-ferrous 1 tablet PO DAILY 10/26/21 06/13/24 History fumarate 28 mg-folic acid 800 mcg tablet () Laboratory Tests 06/13/24 07:18 WBC 9.0 K/mm3 (4.5-10.0) RBC 4.14 L M/mm3 (4.2-5.4) Hgb 11.5 L D g/dL (12.0-15.0) Hct 36.1 L % (37.0-47.0) MCV 87.2 fl (80-100) MCH 27.8 pg (26-34) MCHC 31.9 L g/dl (32-36) RDW 13.2 % (11.5-14.5) Plt Count 391 H k/mm3 (150-375) MPV 8.3 fl (7.4-10.4) Immature Gran % (Auto) 1.2 H % (0-0.5) Neut % (Auto) 47.4 % (45.5-73.1) Lymph % (Auto) 40.1 % (18.3-44.2) [place] % (Auto) 9.2 H % (2.6-8.5) Eos % (Auto) 1.7 % (0-4.4) Baso % (Auto) 0.4 % (0.2-1.2) Lymph # (Auto) 3.61 H K/mm3 (0.9-3.2) [place] # (Auto) 0.8 H K/mm3 (0.1-0.6) Eos # (Auto) 0.2 K/mm3 (0-0.3) Baso # (Auto) 0.0 K/mm3 (0.0-0.1) Abs Immat Gran (auto) 0.11 H K/mm3 (0.00-0.031) Absolute Neuts (auto) 4.3 K/mm3 (1.3-6.7) Absolute Nucleated RBC 0.000 K/mm3 (0.0-0.012) Nucleated RBC % 0.0 % (0.0-0.2) RPR Pending HIV 1&2 Ab/P24 Ag 4thGn Pending Patient hx anesthesia problems: other (spinal have not been effective ends up ETT anes each time) Family hx anesthesia problems: none Results Review: All pre-operative results and documents have been reviewed as part of the pre-operative evaluation. [facility] Past Medical History Medical History Spina bifida Type 2 diabetes mellitus diagnosis in early managed with diet control Surgical History Surgical History History of G2-34 week abruption- G3-26 week preeclampsia G4-36 week labor Family History Family History Grandparent Diabetes mellitus Hypertension Social History Social History Smoking status: Light tobacco smoker Tobacco type: cigarettes Second hand tobacco smoke exposure: No Substance use: current Last use: 06/10 Do You Feel Safe in your Home?: Yes Lack of Transportation: No Lack of Food: Never True Current Housing: I Have Housing Concerned About Future Housing: No Difficulty Paying Gas/Electric Bills: No Difficulty Paying for Meds: No Currently Unemployed: No Education: Master's Degree or Higher Difficulty w/ Childcare or Family Care: No Spiritual care concerns: No Anes - Eval Final PreProcedure Day of Procedure 06/13/24 07:44 Patient weight: thin Heart: regular rate and rhythm Lungs: decreased breath sounds Airway: Mallampati scale class II Neurological: alert and oriented Last oral intake: >/= 8 hours ASA classification: III Emergent: no Anesthetic plan: proceed Anesthesia type and monitoring: general ETT and standard monitoring Results Review: All pre-operative results and documents have been reviewed as part of the pre-operative evaluation. Informed Consent: The patient's anesthetic plan and its attendant risks and benefits were discussed with the patient/family/POA. Questions were solicited and answers provided to the satisfaction of the patient/family/PO
--- NOTE | 2024-06-13 08:07 | WPDHPUPDATE1 ---
History and Physical Update Update Date/Time: 06/13/24 08:07 History and Physical has been reviewed, including an updated exam of the patient. There are NO changes in the patient's condition. Risks, benefits, and alternatives have been discussed and questions answered. Patient agrees to proceed with procedure.
--- NOTE | 2024-06-13 08:07 | PM.IMHP ---
H&P: HPI History of Present Illness Date/Time: 06/13/24 08:07 Chief Complaint: Intrauterine growth restriction at 36 weeks previous x4 requests sterilization Narrative: The patient is a 39-year-old 7 para 4 aborta 2 being admitted at 36 weeks for repeat section and possible left tubal ligation. has been complicated by severe intrauterine growth restriction. growth has been at the less than 1st percentile for the 2nd half of the . Dopplers and fluid have been normal. The infant continues to have growth but continues at less than the 1st percentile. In addition the patient has a low risk NIPT. The patient requests sterilization if possible. On her last her left tube was not able to be identified due to extensive adhesions. Her right tube was been previously removed. labs O positive, rubella immune, RPR negative, hepatitis-B surface antigen negative, HIV negative, group B strep negative. Initial drug screen is positive for marijuana and nicotine. Patient has cut back on both throughout the . Plan to proceed with repeat section and possible left tubal ligation. Review of Systems Review of Systems: not repeated day of surgery; patient states no changes in status PMF Past Medical History Medical History (Updated 06/13/24 @ 08:17 by Latoya Isidro MD) Spina bifida Spontaneous x2 G1 & G5 Surgical History Surgical History (Updated 06/13/24 @ 08:17 by Latoya Isidro MD) History of X4 G2-34 week abruption- G3-26 week preeclampsia G4-36 week labor G6-32 week abruption Family History Family History Grandparent Diabetes mellitus Hypertension Social History Social History Smoking status: Light tobacco smoker Tobacco type: cigarettes Second hand tobacco smoke exposure: No Substance use: current Last use: 06/10 Do You Feel Safe in your Home?: Yes Lack of Transportation: No Lack of Food: Never True Current Housing: I Have Housing Concerned About Future Housing: No Difficulty Paying Gas/Electric Bills: No Difficulty Paying for Meds: No Currently Unemployed: No Education: Master's Degree or Higher Difficulty w/ Childcare or Family Care: No Spiritual care concerns: No Meds Home Medications and Allergies Home Medications Medication Instructions Recorded Confirmed Type vit no.95-ferrous 1 tablet PO DAILY 10/26/21 06/13/24 History fumarate 28 mg-folic acid 800 mcg tablet () Allergies Allergy/AdvReac Type Severity Reaction Status Date / Time No Known Allergies Allergy Verified 06/13/24 07:45 Vital Signs Vital Signs - 24 hr 06/13/24 07:02 06/13/24 07:11 Pulse Rate 83 Blood Pressure 132/82 Oxygen Delivery Room Air Exam Const: General: healthy appearing and alert Orientation/consciousness: patient oriented x3 Resp: Effort & Inspection: normal respiratory effort GI: GI Palp: Yes Soft to palpation, No Tenderness to palpation present (GI) and Yes Other GI palpation findings present ( Fundal height 32cm) : External Female Exam: normal external appearance Speculum Exam - Vagina: normal appearance of the vagina and normal vaginal discharge Speculum Exam - Cervix: normal appearance of the cervix Bimanual exam- vagina & uterus: consistency normal and other ( uterus gravid) Bimanual Exam- Adnexa, other: normal adnexae and No adnexal tenderness Neuro: General: patient oriented x3 H&P: Results Labs Labs: Short CBC 06/13/24 Range/Units 07:18 WBC 9.0 (4.5-10.0) K/mm3 Hgb 11.5 L D (12.0-15.0) g/dL Hct 36.1 L (37.0-47.0) % Plt Count 391 H (150-375) k/mm3 Assessment and Plan Assessment and plan (1) 36 weeks gestation of pregnanc
[2024-06-13] MEDS: FAMOTIDINE 20 MG/2 ML VIAL IV PUSH (08:15)
[2024-06-13] MEDS: ONDANSETRON INJ 4 MG/2 ML VIAL IV PUSH (08:15)
[2024-06-13] MEDS: ceFAZolin 2 GM/D5W 50 ML 2 GM/50 ML BAG IVPB (08:23)
[2024-06-13 08:25] LABS: Rapid Plasma Reagin Non-Reactive (NonReactive)
--- NOTE | 2024-06-13 09:12 | W.PM.OBCSD ---
OB - Delivery Note Procedure Delivery date: 06/13/24 Pre-op diagnosis: Intrauterine Growth Restriction (IUGR) (<1%), Previous Delivery (x4) and Other (36 wks; encounter for sterilization; spina bifida occulta) Post-op Diagnosis: Same Delivery monitor: External FHT and External Uterine Procedure Performed: Repeat Secondary branch: low cervical, transverse Surgeon: Latoya Isidro MD Anesthesia type: General Description of Procedure/Findings: The patient was taken to the operating room and placed under general anesthesia in the dorsal supine position with a leftward tilt. She had been previously prepped and draped in the usual sterile fashion. The Pfannenstiel skin incision was made with a scalpel and carried to the underlying layer of fascia which was nicked in the midline. The incision was extended laterally using Hector scissors. Ochsner was used to tent the fascia which was then dissected off using sharp and blunt dissection. The peritoneum was tented and entered with Metzenbaum scissors. The incision was extended with blunt traction. The bladder blade is placed. The vesicouterine peritoneum is grasped with a Peon and a bladder flap created using Metzenbaum scissors. Bladder blade was replaced. The lower uterine segment is very, very thin with the hair visible easily through the uterus. Lower uterine segment was incised in a transverse fashion with the scalpel and extended with blunt traction. Membranes are ruptured with clear fluid. The vertex is guided through the incision as the material assistant applied fundal pressure and the infant was fully delivered. The delayed cord clamping was allowed as the is crying and has great tone. The cord was then clamped and cut the infant handed to the waiting nursery nurse and exchange consultant. The placenta was removed using manual traction after cord for gases and blood testing were drawn. The uterus is cleared of all clots and debris and exteriorized. The uterine incision is closed using 0 Monocryl in a running locked fashion with the same suture used to imbricate. Good hemostasis is noted. The right tube was previously removed. The left tube is very adherent to the left ovary. The only portion that is free is the fimbriated end. The fimbriated end and approximately 2 cm of the distal to are crossclamped with a Z clamp. The tubal segment is excised. The pedicle was tied off using 0 Vicryl with a Martha stitch as well as free tied. The ovary underlying the tube removal site is noted to be bleeding. A free tie of 0 Vicryl is used and not successful. The pedicle of the tubal as well as the bleeding portion of the ovary are cross clamped using a Z clamp. A Martha stitch of 0 Vicryl was used on the pedicle and good hemostasis of the ovary was then noted. The cul-de-sac and gutters are irrigated. The uterus was returned to the abdomen. The incision is again inspected and noted to be hemostatic. The ovary is also hemostatic. The fascia was then closed using 0 Vicryl in a running fashion. Subcutaneous tissues were irrigated made hemostatic using Bovie cautery. Skin incision was closed using 4-0 Vicryl in a subcuticular fashion. Glue was placed over the incision. Sponge, needle, and instrument counts are correct per the OR staff. Patient was awakened from anesthesia and taken to recovery in stable condition. Specimen: Yes (placenta;left fallopian tube segment) Estimated Blood Loss: 200 Drains: Yes ( [place]) Packing: No Pathology: Yes ( see above) Complications: No immediate complications Condition: Stable Disposition: [facility] Baby Date of : 06/13/24 Gestational Age by Date: 36 gender: Male Weight (pounds): 3 Weight (ounces): 12 presentation: vertex position: Right Occiput Anterior Placenta delivery description: Spontaneous Cord Vessel Description: 3 Vessels and Delayed Cord Clamping score one minute: 8 Apga
--- NOTE | 2024-06-13 09:21 | PM.OBDSVD ---
DS: Admitting Diagnosis Discharge Date 06/15/24 Admitting Diagnosis Intrauterine at 36 weeks previous section x4 intrauterine growth restriction encounter for sterilization DS: Discharge Diagnosis Discharge Diagnosis (1) Delivery by section using transverse incision of lower segment of uterus: Code(s): O82 - Encounter for delivery without indication Status: Acute (2) S/P tubal ligation: Code(s): Z98.51 - Tubal ligation status Status: Acute (3) Preeclampsia: Code(s): O14.90 - Unspecified pre-eclampsia, unspecified trimester Status: Acute Assessment and Plan: preeclampsia-DC home on Labetalol 100 mg BID OB - DS: Summary OB Procedures : NST, Ultrasound and Other ( management of IUGR) OB Procedures Intrapartum: low cervical, transverse and Tubal ligation ( left) OB Procedures: : None Peripartum Data Infant Delivery Method: Section Procedures: Procedures Operation Date: 06/13/24 12:00 <No data on this case meets the specified criteria> complications: none Status at Discharge Functional status at discharge: independent ambulation Overall status at discharge: patient is progressing back to baseline Time Spent with Patient Time attestation: Total time spent providing and/or coordinating discharge services: DS: Data Data Completed and Pending Labs on day of discharge: Labs from last 24 hours 06/13/24 07:18 WBC 9.0 RBC 4.14 L Hgb 11.5 L D Hct 36.1 L MCV 87.2 MCH 27.8 MCHC 31.9 L RDW 13.2 Plt Count 391 H MPV 8.3 Immature Gran % (Auto) 1.2 H Neut % (Auto) 47.4 Lymph % (Auto) 40.1 [place] % (Auto) 9.2 H Eos % (Auto) 1.7 Baso % (Auto) 0.4 Lymph # (Auto) 3.61 H [place] # (Auto) 0.8 H Eos # (Auto) 0.2 Baso # (Auto) 0.0 Abs Immat Gran (auto) 0.11 H Absolute Neuts (auto) 4.3 Absolute Nucleated RBC 0.000 Nucleated RBC % 0.0 RPR Non-reactive HIV 1&2 Ab/P24 Ag 4thGn Pending Blood Type O Positive Antibody Screen Negative Discharge Plan Discharge Attending physician on discharge: Latoya Isidro Discharging Clinician: Latoya Isidro Anticipated Discharge Date/Time: 06/16/24 09:24 Patient Disposition: Home, Self-Care Activity: may shower, may drive after 2 weeks and pelvic rest Diet: regular Wound Care Instructions: incision open to air Patient Instructions: Antibiotic Form Stand Alone Forms: General Discharge Information Follow-up/Referrals: Latoya Isidro MD [Physician] - 1 Week ( and 6 weeks) Discharge Medications: New hydrocodone-acetaminophen 5-325 mg Tablet 1 tablet PO Q3H PRN (Reason: Breakthrough Pain Rated 4-6) Qty: 20 0RF ibuprofen 600 mg Tablet 600 mg PO Q6H Qty: 60 0RF labetalol 100 mg Tablet 100 mg PO Q12HR Qty: 60 1RF Continued PNV cmb#95-ferrous fumarate-FA [] 28 mg iron- 800 mcg Tablet 1 tablet PO DAILY Date of admission: 06/13/24 06:25 Primary Care Provider: Arlene,Maribell Najera Admitting Provider: Latoya Isidro Attending physician on admission: Latoya Isidro Condition: Stable
[2024-06-13] MEDS: MORPHINE SULFATE INJ (*CRX) 10 MG/ML AMP 3 MG IV PUSH ×4 (09:42→11:36)
[2024-06-13] MEDS: LABETALOL HCL INJ 100 MG/20 ML VIAL 20 MG IV PUSH (10:35)
[2024-06-13] MEDS: LIDOCAINE 5% PATCH 1 PATCH TRANSDERM (10:45)
[2024-06-13 10:53] LABS: Alanine Aminotransferase 12 U/L (6-35); Albumin Level 3.4 g/dL (3.5-5.1); Alkaline Phosphatase 207 U/L (38-126); Anion Gap 9 mmol/L (4-12); Aspartate Amino Transferase 22 U/L (14-36); Bilirubin,Total 0.3 mg/dL (0.2-1.3); Blood Urea Nitrogen 4 mg/dL (7-17); Calcium 9.1 mg/dL (8.4-10.2); Carbon Dioxide 25 mmol/L (22-30); Chloride 100 mmol/L (98-107); Estimated Glomerular Filt Rate > 60; Glucose 96 mg/dL (65-110); Potassium 3.6 mmol/L (3.4-5.0); Sodium 134 mmol/L (137-145); Uric Acid 5.1 mg/dL (2.5-7.5)
[2024-06-13] MEDS: LABETALOL HCL INJ 100 MG/20 ML VIAL 40 MG IV PUSH (11:03)
--- NOTE | 2024-06-13 11:56 | OBPPTRN ---
Patient transferred to post room # 290 via stretcher. Support person present. Oriented to unit, room, information board, rooming in, admission packet and security measures. Patient verbalizes understanding.
[2024-06-13] MEDS: OXYTOCIN 30 UNITS/NS 500 ML 30 UNITS/500 ML BAG 125 UNITS IV CONT (12:10)
[2024-06-13] MEDS: ACETAMINOPHEN 325 MG TABLET 650 MG PO ×2 (12:51→18:58)
[2024-06-13] MEDS: KETOROLAC 15 MG/ML VIAL (*BKC) IV PUSH ×2 (12:51→18:52)
[2024-06-13] MEDS: SIMETHICONE 80 MG TAB.CHEW PO ×2 (12:51→16:38)
[2024-06-13 13:29] LABS: HIV 1/2 Ab P24 Ag Result Negative (Negative)
[2024-06-13 14:02] LABS: Creatinine Urine 4.2 mg/dL; Total Protein Urine Random 13 mg/dL
[2024-06-13] MEDS: DEXTROSE 5%/0.45% SOD CHL 1,000 ML 125 ML IV CONT (15:24)
--- NOTE | 2024-06-13 16:19 | PC.NURSE ---
1400.Breast pump provided due to baby being transferred to [facility]. Instructions given on cleaning, care, usage, that there should be no pain, pumping schedule for milk production, collection, and storage of human milk. Patient was assessed for correct placement, flange size, to pump for comfort and nipple stretching/stimulation for adequate milk production every 3 hours (8 times in 24 hours) 1-2 times at night. Parents are encouraged to record the pumping schedule on the feeding sheet.?Mother also requested a pump thru insurance, she chose a medela, forms submitted to [facility] medical. Mother voiced understanding of the education shared along with mom/baby guide and the pump measurement, flange fit handout for additional resource information. Reported to the Primary RN.
[2024-06-13] MEDS: DOCUSATE SODIUM 100 MG CAPSULE PO (16:38)
[2024-06-13] MEDS: LABETALOL HCL 100 MG TABLET PO (21:09)
[2024-06-14] VITALS (9 sets, daily range): BP systolic 133–152; BP diastolic 80–89; PULSE 62–90; RESP 16–18; TEMP 37.1–37.8; O2SAT 100
[2024-06-14] MEDS: ACETAMINOPHEN 325 MG TABLET 650 MG PO ×4 (00:51→21:25)
[2024-06-14] MEDS: KETOROLAC 15 MG/ML VIAL (*BKC) IV PUSH ×2 (00:51→07:37)
[2024-06-14 05:15] LABS: Basophils Percent Auto 0.2 % (0.2-1.2); Eosinophils Absolute Auto 0.1 K/mm3 (0-0.3); Eosinophils Percent Auto 0.7 % (0-4.4); Hematocrit 34.3 % (37.0-47.0); Hemoglobin 11.2 g/dL (12.0-15.0); Immature Granulocyte Absolute 0.08 K/mm3 (0.00-0.031); Immature Granulocyte Percent A 0.6 % (0-0.5); Lymphocytes Absolute Auto 3.32 K/mm3 (0.9-3.2); Mean Corpuscular HGB Conc 32.7 g/dl (32-36); Mean Corpuscular Hemoglobin 28.4 pg (26-34); Mean Corpuscular Volume 86.8 fl (80-100); Mean Platelet Volume 8.5 fl (7.4-10.4); Monocytes Absolute Auto 1.1 K/mm3 (0.1-0.6); Neutrophils Absolute Auto 9.2 K/mm3 (1.3-6.7); Neutrophils Percent Auto 66.5 % (45.5-73.1); Platelet Count Result 390 k/mm3 (150-375); Red Blood Count 3.95 M/mm3 (4.2-5.4); Red Cell Distribution Width 13.2 % (11.5-14.5); White Blood Count 13.8 K/mm3 (4.5-10.0)
[2024-06-14] MEDS: SIMETHICONE 80 MG TAB.CHEW PO ×3 (07:37→16:58)
[2024-06-14] MEDS: MULTIVIT/MIN/PREN/FOL AC/IRON TABLET 1 TAB PO (08:04)
[2024-06-14] MEDS: DOCUSATE SODIUM 100 MG CAPSULE PO ×2 (08:04→16:58)
[2024-06-14] MEDS: LABETALOL HCL 100 MG TABLET PO ×2 (08:04→18:34)
--- NOTE | 2024-06-14 09:15 | P.PNOB_ITS ---
OB - PN: Subj Subjective Date/time seen: 06/14/24 09:15 Patient comments: no complaints and pain well controlled baby status: doing well OB - PN: Obj Data Labs 06/14/24 04:06 06/13/24 07:18 Labs: Laboratory Results - last 24 hr 06/13/24 06/13/24 06/14/24 07:18 10:49 04:06 WBC 13.8 H RBC 3.95 L Hgb 11.2 L Hct 34.3 L MCV 86.8 MCH 28.4 MCHC 32.7 RDW 13.2 Plt Count 390 H MPV 8.5 Immature Gran % (Auto) 0.6 H Neut % (Auto) 66.5 Lymph % (Auto) 24.0 [place] % (Auto) 8.0 Eos % (Auto) 0.7 Baso % (Auto) 0.2 Lymph # (Auto) 3.32 H [place] # (Auto) 1.1 H Eos # (Auto) 0.1 Baso # (Auto) 0.0 Abs Immat Gran (auto) 0.08 H Absolute Neuts (auto) 9.2 H Absolute Nucleated RBC 0.000 Nucleated RBC % 0.0 Sodium 134 L Potassium 3.6 Chloride 100 Carbon Dioxide 25 Anion Gap 9 BUN 4 L Creatinine 0.60 L Estim Creat Clear Calc Not Reportable Estimated GFR > 60 Glucose 96 Uric Acid 5.1 Calcium 9.1 Total Bilirubin 0.3 AST 22 ALT 12 Alkaline Phosphatase 207 H Total Protein 7.0 Albumin 3.4 L U Random Total Protein 13 Urine Creatinine 4.2 Protein/Creat Ratio 2 3.10 H HIV 1&2 Ab/P24 Ag 4thGn Negative OB - PN A/P Plan day: 1 Plan: routine care Time Spent With Patient Time: Total time spent is greater than 50% in coordination of care (as documented) at patient's floor/unit and/or counseling patient: Exam Narrative: inc c/d/i : Bimanual exam- vagina & uterus: other (Uterus firm, nt @U)
--- NOTE | 2024-06-14 09:54 | WPDANLDPN2 ---
Anes-Prog Note L&D Date/Time: 06/14/24 09:54 Comfortable throughout: section Neuraxial method: spinal Epidural/Spinal procedure site: clean & non-tender Neuro status: Neuro function grossly intact. Cardiovascular status: normal Respiratory status: normal Airway patency: baseline Mental status: baseline Post-Op hydration status: normal Vital Signs: Last Vital Signs Temp 37.4 C 06/14/24 04:00 Pulse 62 06/14/24 08:04 Resp 18 06/14/24 04:00 BP 147/81 H 06/14/24 04:00 Pulse Ox 100 06/14/24 04:00 O2 Del Method Room Air 06/14/24 04:00 Pain score (VAS): 0 I/O: Intake & Output 06/13/24 06/14/24 06/14/24 23:59 07:59 15:59 Intake Total 500 1640 Output Total 1000 3300 Balance -500 -1660 Post-procedural complaints: none Patient feedback: Patient satisfied with anesthetic care.
--- NOTE | 2024-06-14 09:54 | WPDANLDNPN2 ---
Anes-Prog Note L&D-Neuraxial Date/Time: 06/14/24 09:54 Neuraxial medications: intrathecal PF morphine Opiod-related complaints: none Patient feedback: Patient satisfied with post-operative pain management.
[2024-06-14] MEDS: HYDROcodone/acetaminophen (*CRX) 5-325 MG TABLET 1 TAB PO (10:17)
--- NOTE | 2024-06-14 10:55 | PC.NURSE ---
Saw patient in regards to pumping since baby has been transferred to [facility]. She says she has pumped some and she is going to pump again this morning when she gets up. She states that the pump feels ok and is not painful and she does not have any questions at this time. Will call for assistance if needed. Reported to primary RN.
[2024-06-14] MEDS: IBUPROFEN 600 MG TABLET PO ×2 (13:38→21:25)
[2024-06-14] MEDS: HYDROcodone/acetaminophen (*CRX) 10-325 MG TABLET 1 TAB PO (15:42)
[2024-06-15] MEDS: HYDROcodone/acetaminophen (*CRX) 10-325 MG TABLET 1 TAB PO (01:40)
[2024-06-15] MEDS: ACETAMINOPHEN 325 MG TABLET 650 MG PO ×2 (03:33→09:45)
[2024-06-15] MEDS: IBUPROFEN 600 MG TABLET PO ×2 (03:33→09:45)
[2024-06-15 03:44] VITALS: BP 135/84
[2024-06-15 08:00] VITALS: BP 156/85; PULSE 76; RESP 16; TEMP 36.9; O2SAT 100
[2024-06-15 08:15] VITALS: PULSE 76
[2024-06-15] MEDS: MULTIVIT/MIN/PREN/FOL AC/IRON TABLET 1 TAB PO (08:15)
[2024-06-15] MEDS: DOCUSATE SODIUM 100 MG CAPSULE PO (08:15)
[2024-06-15] MEDS: LABETALOL HCL 100 MG TABLET PO (08:15)
[2024-06-15] MEDS: HYDROcodone/acetaminophen (*CRX) 5-325 MG TABLET 1 TAB PO (08:15)
[2024-06-15] MEDS: SIMETHICONE 80 MG TAB.CHEW PO (08:15)
[2024-06-15 09:15] VITALS: BP 135/87
--- NOTE | 2024-06-15 09:27 | PM.OBPNVD ---
OB - PN: Subj Subjective Date/time seen: 06/15/24 09:27 Patient comments: no complaints and pain well controlled baby status: doing well (off O2 and eating well) OB - PN: Obj Data Labs 06/14/24 04:06 06/13/24 07:18 OB - PN A/P Assessment and Plan (1) Preeclampsia: Code(s): O14.90 - Unspecified pre-eclampsia, unspecified trimester Status: Acute Assessment and Plan: No sx. Good diuresis. BP stable with labetalol 100 BID Plan day: 2 Plan: routine care and discharge home Time Spent With Patient Time: Total time spent is greater than 50% in coordination of care (as documented) at patient's floor/unit and/or counseling patient: Exam Narrative: inc c/d/i : Bimanual exam- vagina & uterus: other (Uterus firm, nt @U)
== END 2024-06-15 10:10 | disposition home or self-care (01) | DRG 539 ==
LOC: ANHLDR 09:24 → ANHOB2 12:11
PROVIDERS: Admitting Provider Obstetrics & Gynecology Gynecology; PCP Nurse Practitioner Family; Visit Provider Obstetrics & Gynecology Gynecology
PROC: 10D00Z1 Extraction of Products of Conception, Low, Open Approach (ICD-10-PCS; CPT 59514; principal; 2024-06-13 12:00)
DX: O36.5930 Maternal care for other known or suspected poor fetal growth, third trimester, not applicable or unspecified (principal); Z37.0 Single live birth; Z3A.36 36 weeks gestation of pregnancy; O34.211 Maternal care for low transverse scar from previous cesarean delivery; Z30.2 Encounter for sterilization; O14.94 Unspecified pre-eclampsia, complicating childbirth
CPT/HCPCS: 36415; 80053; 82570; 84156; 84550; 85025; 86592; 86703; 86850; 86900; 86901; 88302; 88307; A9270; G0432; J0330; J0690; J1170; J1885; J2250; J2270; J2371; J2405; J2590; J2704; J2765; J3010